=== PATIENT | male | born 1930 | race Caucasian/White ===

== ENCOUNTER 2017-08-07 10:57 | Emergency (ER) | payer MEDICARE, BC ==
[~2017-08-07] VITALS: Ht 175.3 cm; Wt 72.6 kg
[~2017-08-07 10:57] MED LIST: ALLO100T56 PO; CHOL200074 PO; FINA5TAB11 PO; GABA100C PO; LATA2.5D2 EACHEYE; PSYL174P2 PO; TAMS-3 PO; TIMO5DRO18 EACHEYE
[2017-08-07] MEDS ORDERED: IV NORMAL SALINE 500 ML BAG IV ONE (11:15)
[2017-08-07 11:31] LABS: BASOPHILS % (AUTO) 0.5 % (0.0-2.0); CARBON DIOXIDE 26 mmol/L (21-32); CHLORIDE 103 mmol/L (98-107); CREATININE 1.7 mg/dL (0.6-1.3); EOSINOPHILS # (AUTO) 0.1 K/uL (0.0-0.7); EOSINOPHILS % (AUTO) 1.2 % (0.0-7.0); GLUCOSE 126 mg/dL (74-106); HEMATOCRIT 45.9 % (40-50); LYMPHOCYTES # (AUTO) 1.2 K/UL (0.8-4.8); LYMPHOCYTES % (AUTO) 15.3 % (20.5-51.5); MEAN CORPUSCULAR HEMOGLOBIN 28.9 UUG (27.0-31.0); MEAN CORPUSCULAR HGB CONC 33 g/dL (32.0-37.0); MEAN CORPUSCULAR VOLUME 88.1 FL (82.0-92.0); MONOCYTES # (AUTO) 0.5 K/UL (0.1-1.30); MONOCYTES % (AUTO) 6.1 % (0.0-11.0); NEUTROPHILS # (AUTO) 6.2 K/UL (1.8-8.9); NEUTROPHILS % (AUTO) 76.9 % (38.5-71.5); PLATELET COUNT (AUTO) 216 K/UL (150-450); POTASSIUM 5.1 mmol/L (3.5-5.1); RED BLOOD CELL COUNT(AUTO) 5.21 MIL/UL (4.7-6.1); UREA NITROGEN, BLOOD 29 mg/dL (7-18); WHITE BLOOD COUNT (AUTO) 8.1 K/UL (4.0-11.2)
[2017-08-07 11:37] LABS: ALANINE AMINOTRANSFERASE 28 U/L (16-63); ALKALINE PHOSPHATASE 90 U/L (50-136); ASPARTATE AMINOTRANSFERASE 14 U/L (15-37); BILIRUBIN,DIRECT 0.2 mg/dL (0.0-0.2); BILIRUBIN,TOTAL 0.8 mg/dL (0.2-1.0); TOTAL PROTEIN, SERUM 6.5 g/dL (6.4-8.2)
[2017-08-07 11:56] LABS: LYMPHOCYTES % (MANUAL) 18 % (20-40); MONOCYTES % (MANUAL) 2 % (2-10); NEUTROPHILS % (MANUAL) 80 % (42-75)
[2017-08-07 12:39] LABS: *BILIRUBIN,URIN NEGATIVE (NEGATIVE); *BLOOD, URINE Trace-lysed (NEGATIVE); *CLARITY,URINE CLEAR (CLEAR); *COLOR,URINE YELLOW (YELLOW); *KETONES,URINE NEGATIVE (NEGATIVE); *PROTEIN,URINE NEGATIVE (NEGATIVE); *UROBILINOGEN,URINE 0.2 E.U./dl (NORMAL); LEUKOCYTE ESTERASE ,URINE NEGATIVE (NEGATIVE); NITRITE, URINE NEGATIVE (NEGATIVE); UGLUCOSE NEGATIVE (NEGATIVE)
[2017-08-07] MEDS ORDERED: MECLIZINE HCL 25 MG TABLET PO ONE (12:45)
[2017-08-07] MEDS ORDERED: MECLIZINE HCL 25 MG TABLET ONE (13:08)
[2017-08-07 13:34] LABS: BACTERIA,URINE NONE SEEN /HPF (NONE SEEN); SQUAMOUS EPITHELIAL CELL,UR NONE SEEN /HPF (NONE SEEN); WBC,URINE 0-3 /HPF (0-3)
--- NOTE | 2017-08-07 14:34 | NUR ---
IV removed. Catheter intact and site benign. Pressure and 4x4 gauze applied to site. No bleeding noted.Patient discharged to home in stable conditon. Written and verbal after care instructions given. Patient verbalizes understanding of instructions.
--- NOTE | 2017-08-07 14:34 | NUR ---
Patient does not wish to proceed with medical care recommended by . Patient and pt's daughter given information related to possible complications, up to and including , which could occur as a result of leaving the hospital at this time. Patient and daughter verbalized understanding of risks involved due to leaving against medical advice. Patient's daughter signed AMA form per pt request.
[2017-08-07 14:35] VITALS: BP 143/94
== END 2017-08-07 14:36 | disposition left against medical advice (07) ==
LOC: ER 11:02
DX: I70.0 Atherosclerosis of aorta (principal); K21.9 Gastro-esophageal reflux disease without esophagitis; M16.0 Bilateral primary osteoarthritis of hip; I95.9 Hypotension, unspecified; Z88.6 Allergy status to analgesic agent; W06.XXXA Fall from bed, initial encounter; Y92.89 Other specified places as the place of occurrence of the external cause; Y93.89 Activity, other specified; Y99.8 Other external cause status
CPT/HCPCS: 36415; 71010; 72100; 73502; 80048; 80076; 81001; 84484; 85025; 85730; 93005; 96360; 99285; A4663; J7040; J8597; 70030-TC

== ENCOUNTER 2019-07-14 00:08 | Emergency (ER) | payer MEDICARE, BC ==
[~2019-07-14] VITALS: Ht 165.1 cm; Wt 76.2 kg
--- NOTE | 2019-07-14 00:20 | NUR ---
DR. GARCÍA AT BEDSIDE FOR MSE.
[2019-07-14] MEDS ORDERED: ACETAMINOPHEN ES 500 MG TABLET ONE (00:23)
[2019-07-14] MEDS ORDERED: ACETAMINOPHEN ES 500 MG TABLET PO ONE (00:30)
[2019-07-14 00:53] LABS: BASOPHILS # (AUTO) 0.1 K/uL (0.0-8.0); EOSINOPHILS # (AUTO) 0.1 K/uL (0.0-0.7); EOSINOPHILS % (AUTO) 1.3 % (0.0-7.0); MONOCYTES # (AUTO) 0.6 K/uL (2.0-10.0)
[2019-07-14 01:10] LABS: ALANINE AMINOTRANSFERASE 16 U/L (16-63); ALKALINE PHOSPHATASE 102 U/L (50-136); ASPARTATE AMINOTRANSFERASE 12 U/L (15-37); BILIRUBIN,DIRECT 0.1 mg/dL (0.0-0.2); BILIRUBIN,TOTAL 0.4 mg/dL (0.2-1.0); CARBON DIOXIDE 29 mmol/L (21-32); CHLORIDE 103 mmol/L (98-107); CREATININE 1.4 mg/dL (0.6-1.3); GLUCOSE 87 mg/dL (74-106); POTASSIUM 5.2 mmol/L (3.5-5.1); TOTAL PROTEIN, SERUM 7.5 g/dL (6.4-8.2); UREA NITROGEN, BLOOD 24 mg/dL (7-18)
[2019-07-14] MEDS ORDERED: IV NORMAL SALINE 1000 ML BAG IV ONE (01:15)
[2019-07-14 01:17] LABS: BASOPHILS % (AUTO) 0.9 % (0.0-2.0); HEMATOCRIT 43.5 % (36.7-47.1); HEMOGLOBIN 14.2 g/dL (12.5-16.3); LYMPHOCYTES # (AUTO) 1.9 K/uL (20.0-40.0); LYMPHOCYTES % (AUTO) 23.4 % (20.5-51.5); MEAN CORPUSCULAR HGB CONC 33 g/dL (32.5-36.3); MEAN CORPUSCULAR VOLUME 92.1 fL (73.0-96.2); MONOCYTES % (AUTO) 7.5 % (0.0-11.0); NEUTROPHILS # (AUTO) 5.4 K/uL (1.8-8.9); NEUTROPHILS % (AUTO) 66.9 % (38.5-71.5); PLATELET COUNT (AUTO) 201 K/uL (152-348); RED BLOOD CELL COUNT(AUTO) 4.72 MIL/uL (4.06-5.63); WHITE BLOOD COUNT (AUTO) 8.1 K/uL (3.6-10.2)
[2019-07-14 01:17] LABS: *BILIRUBIN,URIN NEGATIVE (NEGATIVE); *CLARITY,URINE CLEAR (CLEAR); *COLOR,URINE YELLOW (YELLOW); *KETONES,URINE NEGATIVE (NEGATIVE); *UROBILINOGEN,URINE 0.2 E.U./dl (NORMAL); LEUKOCYTE ESTERASE ,URINE NEGATIVE (NEGATIVE); NITRITE, URINE NEGATIVE (NEGATIVE); UGLUCOSE NEGATIVE (NEGATIVE)
[2019-07-14 01:22] LABS: *BLOOD, URINE TRACE (NEGATIVE)
[2019-07-14 01:28] LABS: BACTERIA,URINE NONE SEEN /HPF (NONE SEEN); SQUAMOUS EPITHELIAL CELL,UR FEW /HPF (NONE SEEN); WBC,URINE 0-3 /HPF (0-3)
[2019-07-14 01:52] VITALS: BP 161/73
--- NOTE | 2019-07-14 01:52 | NUR ---
Patient discharged to home in stable conditon. Written and verbal after care instructions given. Patient verbalizes understanding of instructions. PATIENT LEFT WITH STEADY GAIT USING FWW.
== END 2019-07-14 01:52 | disposition home or self-care (01) ==
LOC: ER 00:15
DX: B34.9 Viral infection, unspecified (principal); N28.9 Disorder of kidney and ureter, unspecified; K21.9 Gastro-esophageal reflux disease without esophagitis; Z88.6 Allergy status to analgesic agent; Z79.899 Other long term (current) drug therapy
CPT/HCPCS: 36415; 71045; 83605; 85025; 87040; 87086; 87400; 93005; A4663; A9150; J7030

== ENCOUNTER 2021-10-07 18:53 | Emergency (ER) | payer BC, MEDICARE ==
[~2021-10-07] VITALS: Ht 170.2 cm; Wt 70.3 kg
--- NOTE | 2021-10-07 19:44 | NUR ---
AFTER BEING TRIAGED, PATIENT PLACED IN HALLWAY WITH RESCUE DUE TO NO BEDS NO BEDS AVAILABLE AT THIS TIME.
[2021-10-07 20:44] LABS: HEMATOCRIT 46.9 % (36.7-47.1); MEAN CORPUSCULAR HEMOGLOBIN 30.7 uug (23.8-33.4); MEAN CORPUSCULAR VOLUME 91.7 fL (73.0-96.2); PLATELET COUNT (AUTO) 233 K/uL (152-348)
[2021-10-07 21:03] LABS: CARBON DIOXIDE 28 mmol/L (21-32); CHLORIDE 102 mmol/L (98-107); CREATININE 1.6 mg/dL (0.6-1.3); GLUCOSE 108 mg/dL (74-106); POTASSIUM 5.4 mmol/L (3.5-5.1); UREA NITROGEN, BLOOD 34 mg/dL (7-18)
[2021-10-07 21:09] LABS: ALANINE AMINOTRANSFERASE 9 U/L (16-63); ALKALINE PHOSPHATASE 82 U/L (50-136); ASPARTATE AMINOTRANSFERASE 17 U/L (15-37); BILIRUBIN,DIRECT 0.2 mg/dL (0.0-0.2); BILIRUBIN,TOTAL 0.8 mg/dL (0.2-1.0); LIPASE 110 U/L (73-393); TOTAL PROTEIN, SERUM 7.3 g/dL (6.4-8.2)
[2021-10-07 22:54] LABS: *BILIRUBIN,URIN NEGATIVE (NEGATIVE); *BLOOD, URINE NEGATIVE (NEGATIVE); *CLARITY,URINE CLEAR (CLEAR); *COLOR,URINE YELLOW (YELLOW); *KETONES,URINE NEGATIVE (NEGATIVE); *UROBILINOGEN,URINE 0.2 E.U./dl (NORMAL); LEUKOCYTE ESTERASE ,URINE NEGATIVE (NEGATIVE); NITRITE, URINE NEGATIVE (NEGATIVE); PH,URINE 5.5 (5.0-8.0); UGLUCOSE NEGATIVE (NEGATIVE)
--- NOTE | 2021-10-07 23:56 | NUR ---
PATIENT PLACED IN ROOM 3A AT THIS TIME.
[2021-10-08] MEDS ORDERED: IV NS 1000 ML 1,000 ML IV ONE
[2021-10-08] MEDS ORDERED: SODIUM POLYSTYRENE SULFONATE 15 G/60 ML LIQUID UDC PO ONE
[2021-10-08] MEDS ORDERED: SODIUM POLYSTYRENE SULFONATE 15 G/60 ML LIQUID UDC ONE (00:51)
[2021-10-08] MEDS ORDERED: LIDOCAINE 2% (UROJET) 10 ML JELLY MM ONE ×2 (01:28→02:15)
[2021-10-08] MEDS ORDERED: FLEET ENEMA 133 ML BOTTLE RC ONE ×2 (01:45→03:02)
[2021-10-08 02:40] LABS: CARBON DIOXIDE 29 mmol/L (21-32); CHLORIDE 106 mmol/L (98-107); CREATININE 1.5 mg/dL (0.6-1.3); GLUCOSE 104 mg/dL (74-106); POTASSIUM 4.7 mmol/L (3.5-5.1); UREA NITROGEN, BLOOD 30 mg/dL (7-18)
[2021-10-08] MEDS ORDERED: DOCU-141 PO (03:01)
[2021-10-08] MEDS ORDERED: NA P133E RC (03:01)
--- NOTE | 2021-10-08 03:31 | NUR ---
ETA for transport home via [facility] [id number] with [facility]
--- NOTE | 2021-10-08 03:49 | NUR ---
Patient refusing to go with ambulance, states that he found someone who could take him home.
--- NOTE | 2021-10-08 04:49 | NUR ---
Patient discharged to home in stable condition. Written and verbal after care instructions given. Patient verbalizes understanding of instructions. Stressed follow up or return to ER for worsening s/s. Patient wheeled out via wheelchair, picked up by son.
[2021-10-08 05:12] VITALS: BP 133/73
== END 2021-10-08 05:13 | disposition home or self-care (01) ==
LOC: ER 18:56
DX: K56.41 Fecal impaction (principal); E87.5 Hyperkalemia; N18.9 Chronic kidney disease, unspecified; R29.6 Repeated falls; G20 Parkinson's disease; K21.9 Gastro-esophageal reflux disease without esophagitis; Z88.6 Allergy status to analgesic agent; J98.11 Atelectasis; Z79.899 Other long term (current) drug therapy
CPT/HCPCS: 36415; 70030-TC; 83605; 83690; 85025; 87040; 93005; A4663; J7030